=== PATIENT | female | born 1975 | race Two or more races ===

== ENCOUNTER 2023-09-19 07:37 | Outpatient (CLI) | payer OTHER | END 2023-09-19 07:48 | disposition home or self-care (01) | LOC: SONOGRAMA 07:37 | DX: M60.821 Other myositis, right upper arm (principal); M75.81 Other shoulder lesions, right shoulder ==

== ENCOUNTER 2023-09-28 07:19 | Outpatient (CLI) | payer OTHER | END 2023-09-28 07:20 | disposition home or self-care (01) | LOC: NUCLEAR 07:19 | DX: I74.2 Embolism and thrombosis of arteries of the upper extremities (principal) ==